=== PATIENT | male | born 2005 | race Caucasian/White ===

== ENCOUNTER 2025-02-23 21:53 | Emergency (ER) | payer BC ==
[2025-02-23] MEDS ORDERED: Sodium Chloride 0.9% 10 ML Syringe FLUSH PRN (22:27)
[2025-02-23] MEDS: Take Home: Cephalexin 500 MG Cap, 6 Cap Pack PO ONE (22:51)
== END 2025-02-23 23:05 | disposition home or self-care (01) ==
LOC: LL.ED 21:53
DX: L03.116 Cellulitis of left lower limb (principal); Z79.899 Other long term (current) drug therapy; Z79.84 Long term (current) use of oral hypoglycemic drugs
CPT/HCPCS: 96374; 99283; A9270; J0696